=== PATIENT | male | born 1965 | race Caucasian/White ===

== ENCOUNTER 2022-10-26 10:33 | Day surgery (SDC) | payer OTHER ==
[~2022-10-26] VITALS: Ht 172.7 cm; Wt 86.1 kg
[2022-10-26] MEDS ORDERED: ATOR10 (10:46)
[2022-10-26] MEDS ORDERED: Lisinopril2.5 MG (10:47)
[2022-10-26 13:26] VITALS: BP 117/82
== END 2022-10-26 13:19 | disposition home or self-care (01) ==
LOC: ORSCSDS 10:33
PROVIDERS: Internal Medicine Gastroenterology
PROC: 0DBM8ZX Excision of Descending Colon, Via Natural or Artificial Opening Endoscopic, Diagnostic (ICD-10-PCS; principal; 2022-10-26 12:00)
PROC: 0DBN8ZX Excision of Sigmoid Colon, Via Natural or Artificial Opening Endoscopic, Diagnostic (ICD-10-PCS; principal; 2022-10-26 12:00)
PROC: 0DBC8ZX Excision of Ileocecal Valve, Via Natural or Artificial Opening Endoscopic, Diagnostic (ICD-10-PCS; principal; 2022-10-26 12:00)
PROC: 0DBL8ZX Excision of Transverse Colon, Via Natural or Artificial Opening Endoscopic, Diagnostic (ICD-10-PCS; principal; 2022-10-26 12:00)
PROC: 0DBP8ZX Excision of Rectum, Via Natural or Artificial Opening Endoscopic, Diagnostic (ICD-10-PCS; principal; 2022-10-26 12:00)
PROC: 3E0H8KZ Introduction of Other Diagnostic Substance into Lower GI, Via Natural or Artificial Opening Endoscopic (ICD-10-PCS; principal; 2022-10-26 12:00)
PROC: 0DBE8ZX Excision of Large Intestine, Via Natural or Artificial Opening Endoscopic, Diagnostic (ICD-10-PCS; principal; 2022-10-26 12:00)
DX: K51.918 Ulcerative colitis, unspecified with other complication (principal); Z86.010 Personal history of colon polyps; D12.3 Benign neoplasm of transverse colon; D12.5 Benign neoplasm of sigmoid colon; D37.4 Neoplasm of uncertain behavior of colon; K64.4 Residual hemorrhoidal skin tags; K57.30 Diverticulosis of large intestine without perforation or abscess without bleeding; I10 Essential (primary) hypertension; E78.00 Pure hypercholesterolemia, unspecified; Z87.891 Personal history of nicotine dependence; Z79.899 Other long term (current) drug therapy
CPT/HCPCS: 88305; J2250; J2405; J2704; J7120

== ENCOUNTER 2023-07-25 08:55 | Day surgery (SDC) | payer OTHER ==
[~2023-07-25] VITALS: Ht 172.7 cm; Wt 91.7 kg
[~2023-07-25 08:55] MED LIST: ATOR10; ATOR40TA PO; Lactated Ringer's 0 ML IV ONE; Lisinopril2.5 MG; Prinivil10 MG PO; propofoL 0 ML IV ONE
[2023-07-25 09:26] VITALS: BP 133/91
[2023-07-25] MEDS ORDERED: Lactated Ringer's 1,000 ML IV ONE (09:51)
--- NOTE | 2023-07-25 10:06 | NUR ---
07/25/23 1006 SUMMER BENNETT IN TO SEE PATIENT IN PRE OP - THEN PT CALLED FOR NURSE. PER PATIENT, SAID THERE IS "NO NEED FOR (ME) TO BE HERE" HE HAS ACTIVE COLITIS, AND HAS NOT UNDERGONE TREATMENT. PT'S CASE CANCELLED FOR TODAY AND WILL BE RESCHEDULED. OLGA MARINO IN TO REMOVE IV AND DC FLUIDS. PATIENT DRESSED AND ESCORTED TO LOBBY. PT'S RIDE CALLED AND WILL MEET THEM OUT FRONT. OFFERED DRINK AND SNACKS, PT DECLINED.
== END 2023-07-25 09:50 | disposition home or self-care (01) ==
LOC: ORSCSDS 08:55
DX: Z86.010 Personal history of colon polyps (principal); Z53.9 Procedure and treatment not carried out, unspecified reason
CPT/HCPCS: J2704; J7120

== ENCOUNTER → 2024-06-03 | Outpatient (CLI) | payer OTHER ==
[~2024-06-03] MED LIST changes: -Lactated Ringer's 0 ML IV ONE; -propofoL 0 ML IV ONE
== END | disposition home or self-care (01) ==
LOC: LAB SHORT 12:18 → LAB 12:18
DX: M54.16 Radiculopathy, lumbar region (principal)
CPT/HCPCS: 87086

== ENCOUNTER → 2024-06-10 | Outpatient (CLI) | payer OTHER ==
[2024-06-10 10:07] LABS: Source, Urine Clean Catch
[2024-06-10 13:46] LABS: White Blood Cells, Urine TNTC /hpf (0-5)
[2024-06-10 13:47] LABS: Amorphous Mod (0-Heavy); Bacteria Many /hpf; Calcium Oxalate Crystals Rare /hpf; Squamous Epithelial Cells Rare /hpf (Few)
== END ==
LOC: LAB 09:54 → LAB SHORT 09:54
PROVIDERS: Physician Assistant
DX: R31.29 Other microscopic hematuria (principal)
CPT/HCPCS: 81015

== ENCOUNTER 2024-08-18 11:05 | Inpatient (IN) | payer OTHER ==
[~2024-08-18] VITALS: Ht 172.7 cm; Wt 72.2 kg
[2024-08-18 12:00] LABS: BASOPHILS ABSOLUTE AUTO 0.08 K/mm3 (0.00-0.23); BASOPHILS PERCENT AUTO 0 % (0-2); EOSINOPHILS ABSOLUTE AUTO 0.02 K/mm3 (0.00-0.68); EOSINOPHILS PERCENT AUTO 0 % (0-6); Hematocrit 21.5 % (37.0-53.0); Hemoglobin 6.9 g/dL (13.5-17.5); IMMATURE GRAN ABSOLUTE AUTO 0.12 K/mm3 (0.00-0.10); IMMATURE GRAN PERCENT AUTO 1 % (0-1); LYMPHOCYTES PERCENT AUTO 5 % (21-46); MONOCYTES ABSOLUTE AUTO 1.83 K/mm3 (0.16-1.47); MONOCYTES PERCENT AUTO 8 % (4-13); Mean Corpuscular HGB 23.5 pg (26.0-34.0); Mean Corpuscular HGB Conc 32.1 g/dL (31.5-36.5); Mean Corpuscular Volume 73 fL (80-100); Mean Platelet Volume 8.6 fL (9.1-12.4); NEUTROPHILS ABSOLUTE AUTO 21.07 K/mm3 (1.96-9.15); NEUTROPHILS PERCENT AUTO 87 % (41-73); Platelet Count 829 K/mm3 (150-400); RDW Coefficient Variation 17.4 % (11.7-14.2); RDW Standard Deviation 46.6 fL (35.1-46.3); Red Blood Cell Count 2.94 M/mm3 (4.30-5.90); White Blood Cell Count 24.22 K/mm3 (4.00-11.30)
[2024-08-18 12:22] LABS: Albumin, Blood 2.3 g/dL (3.4-5.0); Albumin/Globulin Ratio 0.5 (0.8-1.8); Bilirubin, Total 0.4 mg/dL (0.1-1.0); Bun/Creatinine Ratio 11.8 (12.0-20.0); Calcium, Blood 8.8 mg/dL (8.5-10.1); Creatinine, Blood 0.94 mg/dL (0.60-1.20); Globulin, Blood 4.9 g/dL (2.2-4.0); Phosphorus, Blood 4.3 mg/dL (2.5-4.9); Potassium, Blood 3.8 mmol/L (3.5-5.5); Total Protein, Blood 7.2 g/dL (6.4-8.2)
[2024-08-18] MEDS ORDERED: NS 1,000 ML IV SCH ×2 (13:45→18:30)
[2024-08-18] MEDS ORDERED: Vancomycin HCL 1,500 MG in NS 250 ML IV ONE (13:45)
[2024-08-18] MEDS ORDERED: Piperacillin/Tazobactam Sod 4.5 GM in NS 100 ML IV ONE (13:45)
[2024-08-18] MEDS ORDERED: Morphine Sulfate 4 MG/1 ML Injection IV ONE (14:25)
[2024-08-18 14:42] LABS: Source, Urine Clean Catch
[2024-08-18 14:45] LABS: Appearance, Urine Turbid (Clear); Bilirubin, Urine Neg (Neg); Blood, Urine 5+ (Neg); Color, Urine Brown (P-Yellow); Glucose Qualitative, Urine Neg (Neg); Ketones, Urine Neg (Neg); Leukocyte Esterase, Urine 3+ (Neg); Nitrite, Urine Neg (Neg); Protein, Urine 3+ (Neg); Urobilinogen, Urine NORM (Normal); pH, Urine 6.5 (5.0-8.0)
[2024-08-18 14:57] LABS: Bacteria Many /hpf; Red Blood Cells, Urine TNTC /hpf (0-2); White Blood Cells, Urine TNTC /hpf (0-5)
[2024-08-18 14:58] LABS: Hyaline Casts 0-2 /lpf (0-2); Squamous Epithelial Cells Few /hpf (Few); Transitional Epithelial Cells Rare /hpf (0-Rare)
[2024-08-18] MEDS ORDERED: HYDROmorphone HCl/Pf 1MG SYR IV ONE (15:55)
[2024-08-18] MEDS ORDERED: Ondansetron HCl 2 MG / ML 2ML Vial IV PRN (18:30)
[2024-08-18] MEDS ORDERED: FentaNYL Citrate 50 MCG/ML 2 ML Injection IV PRN (18:30)
[2024-08-18] MEDS ORDERED: FLU VACC TS2024-25(6MOS UP)/PF 45 MCG/0.5 ML SYRINGE IM ONE (18:30)
[2024-08-18 18:56] VITALS: BP 154/92
[2024-08-18] MEDS ORDERED: FentaNYL Citrate 50 MCG/ML 2 ML Injection IV ONE (19:00)
[2024-08-18 19:27] VITALS: BP 153/78
[2024-08-18] MEDS ORDERED: Morphine Sulfate 4 MG/1 ML Injection IV PRN (20:25)
[2024-08-18] MEDS ORDERED: OxyCODONE 5 mg/Acetamin 325 mg TABLET PO PRN (20:25)
[2024-08-18 20:50] LABS: Hematocrit 22.1 % (37.0-53.0); Hemoglobin 7.1 g/dL (13.5-17.5)
[2024-08-18] MEDS ORDERED: Lactobacil 2-S.Thermo-Bifido 1 1 Cap PO SCH (21:00)
[2024-08-19] VITALS (9 sets, daily range): BP systolic 112–155; BP diastolic 69–88
[2024-08-19] MEDS ORDERED: Piperacillin/Tazobactam Sod 3.375 GM in NS 100 ML IV SCH
[2024-08-19] MEDS ORDERED: Vancomycin HCL 1,250 MG in NS 250 ML IV SCH (03:00)
--- NOTE | 2024-08-19 04:36 | NUR ---
SHIFT SUMMARY. PATIENT IS A&OX4, ANSWERS QUESTIONS APPROPRIATELY AND IS ABLE TO MAKE HIS NEEDS KNOWN. PATIENT IS UP INDEPENDENTLY IN ROOM. PATIENT REPORTS HEMATURIA THIS MORNING THAT APPEARS TO BE PROMINENT. PATIENTS PAIN MEDICATIONS CHANGED THIS SHIFT FROM FENTANYL TO DILAUDID IV AND PATIENT HAS ORDER FOR PO MEDICATIONS-SEE ORDERS. PATIENTS HAS CONSISTANT PAIN TO THE LOWER BACK THAT RANGES FROM 6-10; PATIENT REPORTS BETTER PAIN CONTROL WITH DILAUDID. PATIENT HAS NOT HAD A BM IN A COUPLE DAYS BUT ALSO REPORTS THAT HE HAS NOT BEEN EATING AND DOES NOT FEEL IF HE NEEDS TO HAVE A BM. PATIENT IS SATTING >93% ON RA AND DENIES SOB. PATIENT IS STEADY ON FEET AND RECEIVING 150ML/HR OF NS PER ORDERS. OLGA PRAKASH GAVE UPDATE TO [facility] THIS SHIFT; DURING THAT TIME THEY DID NOT HAVE A BEEN AVALIABLE. PATIENT IS AWAITING A COBRA TRANSFER TO [facility] FOR SURGICAL INTERVENTIONS. BED IS LOCKED IN THE LOWEST POSITION WITH CALL LIGHT IN REACH. CARE IS ONGOING.
[2024-08-19 04:57] LABS: BASOPHILS ABSOLUTE AUTO 0.08 K/mm3 (0.00-0.23); BASOPHILS PERCENT AUTO 1 % (0-2); EOSINOPHILS ABSOLUTE AUTO 0.06 K/mm3 (0.00-0.68); EOSINOPHILS PERCENT AUTO 0 % (0-6); Hematocrit 19.8 % (37.0-53.0); Hemoglobin 6.2 g/dL (13.5-17.5); IMMATURE GRAN ABSOLUTE AUTO 0.09 K/mm3 (0.00-0.10); IMMATURE GRAN PERCENT AUTO 1 % (0-1); LYMPHOCYTES ABSOLUTE AUTO 1.16 K/mm3 (0.84-5.20); LYMPHOCYTES PERCENT AUTO 8 % (21-46); MONOCYTES ABSOLUTE AUTO 1.65 K/mm3 (0.16-1.47); MONOCYTES PERCENT AUTO 11 % (4-13); Mean Corpuscular HGB 23.5 pg (26.0-34.0); Mean Corpuscular HGB Conc 31.3 g/dL (31.5-36.5); Mean Corpuscular Volume 75 fL (80-100); Mean Platelet Volume 8.6 fL (9.1-12.4); NEUTROPHILS ABSOLUTE AUTO 11.51 K/mm3 (1.96-9.15); NEUTROPHILS PERCENT AUTO 79 % (41-73); Platelet Count 606 K/mm3 (150-400); RDW Coefficient Variation 18.3 % (11.7-14.2); RDW Standard Deviation 49.8 fL (35.1-46.3); Red Blood Cell Count 2.64 M/mm3 (4.30-5.90); White Blood Cell Count 14.55 K/mm3 (4.00-11.30)
[2024-08-19 05:13] LABS: Albumin, Blood 1.9 g/dL (3.4-5.0); Albumin/Globulin Ratio 0.5 (0.8-1.8); Bilirubin, Total 0.8 mg/dL (0.1-1.0); Bun/Creatinine Ratio 11.7 (12.0-20.0); Calcium, Blood 8.4 mg/dL (8.5-10.1); Creatinine, Blood 0.86 mg/dL (0.60-1.20); Magnesium, Blood 1.8 mg/dL (1.6-2.4); Potassium, Blood 3.7 mmol/L (3.5-5.5); Total Protein, Blood 5.9 g/dL (6.4-8.2)
[2024-08-19 05:17] LABS: International Normalized Ratio 1.13
[2024-08-19] MEDS ORDERED: NS 500 ML IV SCH (05:35)
[2024-08-19] MEDS ORDERED: Docusate Sodium 100 MG Cap PO SCH (09:00)
[2024-08-19] MEDS ORDERED: Atorvastatin 40 MG Tab PO SCH (09:00)
[2024-08-19 09:36] LABS: Hematocrit 25.6 % (37.0-53.0); Hemoglobin 8.4 g/dL (13.5-17.5)
[2024-08-19 15:36] LABS: Hematocrit 27.7 % (37.0-53.0); Hemoglobin 8.9 g/dL (13.5-17.5)
--- NOTE | 2024-08-19 18:39 | NUR ---
SHIFT NOTE: PT A/OX4 ABLE TO MAKE HIS NEEDS KNONW. HE IS IND IN ROOM WITH ALL ADLS. HE HAS HAD MULTIPLE EPIDSODES OF STOOL IN HIS URINE T/O DAY STATING HE IS PASSING MORE BLOOD. [facility] TRENDING UP. PT CONTINUES TO RECEIVE IV FLUIDS AND ANTIBIOTICS. HE CONTINUES TO REPORT PAIN, HE HAS BEEN MEDICATED PER MAR. HE HAS DECREASED APPITITE BUT HAS DRANK MULTIPLE ENSURE T/O DAY. CARE CONTINUES WE WAIT CO[facility]RA TO [facility].
[2024-08-19] MEDS ORDERED: OxyCODONE 5 mg/Acetamin 325 mg TABLET PO PRN (20:05)
--- NOTE | 2024-08-19 22:30 | NUR ---
ATTEMPTED TO REACH DR. BOSE VIA PHONE FOR INCREASED WOB, ACTIVITY INTOLERANCE AND REQURIING 4L 02. CURRENTLY HOOKED UP TO PD BY INFORMATION SERVICES MANAGER AT START OF SHIFT. NO ANSWER VIA PHONE. SPOKE WITH RESIDENT DR. COELHO REGARDING PT AND WOB, INCREASED O2 DEMAND. PER PROVIDER WANTING TO SEE WHAT PD SHOWS VOLUME STATUS BEFORE MAKING DECISION REGARDING ADDITIONAL DIUERETIC. PT ON CONTINOUS O2, WILL CONTINUE TO MONITOR.
[2024-08-20 00:41] VITALS: BP 140/94
[2024-08-20 02:37] LABS: BASOPHILS ABSOLUTE AUTO 0.07 K/mm3 (0.00-0.23); BASOPHILS PERCENT AUTO 1 % (0-2); EOSINOPHILS PERCENT AUTO 2 % (0-6); Hematocrit 21.8 % (37.0-53.0); Hemoglobin 7.2 g/dL (13.5-17.5); IMMATURE GRAN ABSOLUTE AUTO 0.07 K/mm3 (0.00-0.10); IMMATURE GRAN PERCENT AUTO 1 % (0-1); LYMPHOCYTES ABSOLUTE AUTO 1.29 K/mm3 (0.84-5.20); LYMPHOCYTES PERCENT AUTO 10 % (21-46); MONOCYTES ABSOLUTE AUTO 1.98 K/mm3 (0.16-1.47); MONOCYTES PERCENT AUTO 16 % (4-13); Mean Corpuscular HGB 24.8 pg (26.0-34.0); Mean Corpuscular Volume 75 fL (80-100); Mean Platelet Volume 8.5 fL (9.1-12.4); NEUTROPHILS ABSOLUTE AUTO 8.83 K/mm3 (1.96-9.15); NEUTROPHILS PERCENT AUTO 70 % (41-73); Platelet Count 563 K/mm3 (150-400); RDW Coefficient Variation 17.9 % (11.7-14.2); RDW Standard Deviation 48.9 fL (35.1-46.3); White Blood Cell Count 12.54 K/mm3 (4.00-11.30)
[2024-08-20 03:08] LABS: Albumin, Blood 1.9 g/dL (3.4-5.0); Anion Gap 11 mmol/L (3-11); Blood Urea Nitrogen 12 mg/dL (8-24); Bun/Creatinine Ratio 14.8 (12.0-20.0); CO2, Blood 23 mmol/L (21-32); Calcium, Blood 8.3 mg/dL (8.5-10.1); Chloride, Blood 105 mmol/L (98-108); Creatinine, Blood 0.81 mg/dL (0.60-1.20); Glomerular Filtration Rate 101 (60-); Glucose, Blood 114 mg/dL (70-99); Phosphorus, Blood 3.7 mg/dL (2.5-4.9); Potassium, Blood 3.9 mmol/L (3.5-5.5); Sodium, Blood 135 mmol/L (136-145)
[2024-08-20 03:12] LABS: Vancomycin, Trough 20.6 ug/mL (5.0-10.0)
[2024-08-20] MEDS ORDERED: Vancomycin HCL 1,000 MG in NS 250 ML IV SCH (04:00)
[2024-08-20 04:50] VITALS: BP 134/88
[2024-08-20 07:29] VITALS: BP 146/81
[2024-08-20] MEDS ORDERED: Morphine Sulfate 4 MG/1 ML Injection IV ONE (07:50)
[2024-08-20 11:20] VITALS: BP 133/82
[2024-08-20 11:24] VITALS: BP 133/82
[2024-08-20] MEDS ORDERED: Morphine Sulfate 4 MG/1 ML Injection IV PRN (12:35)
--- NOTE | 2024-08-20 15:22 | NUR ---
COBRA [place] PT A&Ox4, CALLS AND COMMUNICATES NEEDS APPROPRIATELY. IND IN ROOM. BP STABLE, SINUS 80's, DENIES CP/PRESSURE. SpO2> 92% RA, DENIES SOB. PT WITH INCREASING SEVERITY IN ABD PAIN, MANAGING PER EMAR. VOIDING IND WITH URINAL, URINE IS YELLOW/BROWN. REPORT GIVEN TO [facility] RN. PT TRANSFERED TO [facility] WITH [facility]. FAMILY TOOK ALL BELONGINGS AND ON THEIR WAY TO [facility]. PT LEFT ROOM AT APPROXIMATELY 1340.
== END 2024-08-20 13:34 | disposition short-term general hospital (02) | DRG 698 ==
LOC: ER 11:05 → PCU 18:00
PROVIDERS: Family Medicine; Nurse Practitioner Acute Care; Student in an Organized Health Care Education/Training Program; ADMIT Internal Medicine
DX: N32.1 Vesicointestinal fistula (principal); K65.1 Peritoneal abscess; E87.1 Hypo-osmolality and hyponatremia; K51.90 Ulcerative colitis, unspecified, without complications; N39.0 Urinary tract infection, site not specified; N13.30 Unspecified hydronephrosis; I10 Essential (primary) hypertension; E78.5 Hyperlipidemia, unspecified; D64.9 Anemia, unspecified; R31.0 Gross hematuria; Z79.899 Other long term (current) drug therapy; Z87.19 Personal history of other diseases of the digestive system; Z79.811 Long term (current) use of aromatase inhibitors
CPT/HCPCS: 36415; 36430; 71045; 74177; 80053; 80069; 80202; 81001; 83605; 83735; 84100; 85014; 85018; 85025; 85610; 86850; 86900; 86901; 86923; 87086; 93005; 93010; 96374; 96375; 99285-25; A9270; J1171; J2270; J2405; J2543; J3010; J3370; J7030; J7050; P9016; Q9967

== ENCOUNTER 2024-10-05 19:19 | Emergency (ER) | payer OTHER ==
[~2024-10-05] VITALS: Ht 172.7 cm; Wt 68.0 kg
[2024-10-05 19:32] VITALS: BP 123/86
[2024-10-05 20:39] LABS: Source, Urine Foley catheter
[2024-10-05 20:42] LABS: Appearance, Urine Cloudy (Clear); Bilirubin, Urine Neg (Neg); Blood, Urine 5+ (Neg); Color, Urine Yellow (P-Yellow); Glucose Qualitative, Urine Neg (Neg); Ketones, Urine Neg (Neg); Leukocyte Esterase, Urine 3+ (Neg); Nitrite, Urine Neg (Neg); Protein, Urine 4+ (Neg); Urobilinogen, Urine NORM (Normal)
[2024-10-05 20:49] LABS: Amorphous Mod (0-Heavy); Bacteria Mod /hpf; Mucus Light (0-Heavy); Red Blood Cells, Urine TNTC /hpf (0-2); Spermatozoa Few /hpf; Squamous Epithelial Cells Few /hpf (Few); White Blood Cells, Urine 25-50 /hpf (0-5)
[2024-10-05] MEDS ORDERED: BACTRIM DS TAB1 EAC1 PO (21:13)
[2024-10-05] MEDS ORDERED: Trimethoprim/Sulfamethoxazole DS Tab PO ONE (21:15)
== END 2024-10-05 21:15 | disposition home or self-care (01) ==
LOC: ER 19:19
PROVIDERS: Student in an Organized Health Care Education/Training Program
DX: T83.091A Other mechanical complication of indwelling urethral catheter, initial encounter (principal); N39.0 Urinary tract infection, site not specified; Z79.899 Other long term (current) drug therapy
CPT/HCPCS: 51702; 51798; 81001; 87077; 87086; 87147; 87186; 99283-25; A9270

== ENCOUNTER → 2024-10-07 | Outpatient (CLI) | payer OTHER ==
[~2024-10-07] MED LIST changes: +BACTRIM DS TAB1 EAC1 PO
[2024-10-07 19:29] LABS: BASOPHILS ABSOLUTE AUTO 0.06 K/mm3 (0.00-0.23); BASOPHILS PERCENT AUTO 1 % (0-2); EOSINOPHILS ABSOLUTE AUTO 0.15 K/mm3 (0.00-0.68); EOSINOPHILS PERCENT AUTO 3 % (0-6); Hematocrit 30.5 % (37.0-53.0); Hemoglobin 9.8 g/dL (13.5-17.5); IMMATURE GRAN ABSOLUTE AUTO 0.01 K/mm3 (0.00-0.10); IMMATURE GRAN PERCENT AUTO 0 % (0-1); LYMPHOCYTES ABSOLUTE AUTO 1.59 K/mm3 (0.84-5.20); LYMPHOCYTES PERCENT AUTO 29 % (21-46); MONOCYTES PERCENT AUTO 11 % (4-13); Mean Corpuscular HGB 26.8 pg (26.0-34.0); Mean Corpuscular HGB Conc 32.1 g/dL (31.5-36.5); Mean Corpuscular Volume 83 fL (80-100); Mean Platelet Volume 10.1 fL (9.1-12.4); NEUTROPHILS ABSOLUTE AUTO 3.03 K/mm3 (1.96-9.15); NEUTROPHILS PERCENT AUTO 56 % (41-73); Platelet Count 517 K/mm3 (150-400); RDW Coefficient Variation 20.6 % (11.7-14.2); RDW Standard Deviation 62.9 fL (35.1-46.3); Red Blood Cell Count 3.66 M/mm3 (4.30-5.90); White Blood Cell Count 5.44 K/mm3 (4.00-11.30)
[2024-10-07 19:38] LABS: Alanine Aminotransfer (ALT/SGP 26 U/L (12-78); Albumin/Globulin Ratio 0.7 (0.8-1.8); Alk Phos 196 U/L (50-136); Anion Gap 10 mmol/L (3-11); Aspartate Aminotrans (AST/SGOT 25 U/L (12-37); Bilirubin, Total 0.4 mg/dL (0.1-1.0); Blood Urea Nitrogen 25 mg/dL (8-24); Bun/Creatinine Ratio 42.7 (12.0-20.0); CO2, Blood 26 mmol/L (21-32); Calcium, Blood 8.9 mg/dL (8.5-10.1); Chloride, Blood 100 mmol/L (98-108); Creatinine, Blood 0.59 mg/dL (0.60-1.20); Globulin, Blood 4.3 g/dL (2.2-4.0); Glomerular Filtration Rate 111 (60-); Glucose, Blood 84 mg/dL (70-99); Phosphorus, Blood 4.4 mg/dL (2.5-4.9); Potassium, Blood 4.3 mmol/L (3.5-5.5); Sodium, Blood 132 mmol/L (136-145); Total Protein, Blood 7.3 g/dL (6.4-8.2); Triglycerides 75 mg/dL (30-160)
== END ==
LOC: LAB 19:04 → LAB SHORT 19:04
PROVIDERS: Surgery
DX: K63.2 Fistula of intestine (principal); K52.9 Noninfective gastroenteritis and colitis, unspecified
CPT/HCPCS: 80053; 83735; 84100; 84478; 85025

== ENCOUNTER → 2024-10-14 | Outpatient (CLI) | payer OTHER ==
[2024-10-14 19:17] LABS: BASOPHILS ABSOLUTE AUTO 0.08 K/mm3 (0.00-0.23); BASOPHILS PERCENT AUTO 1 % (0-2); EOSINOPHILS ABSOLUTE AUTO 0.47 K/mm3 (0.00-0.68); EOSINOPHILS PERCENT AUTO 7 % (0-6); Hematocrit 33.4 % (37.0-53.0); Hemoglobin 10.8 g/dL (13.5-17.5); IMMATURE GRAN ABSOLUTE AUTO 0.01 K/mm3 (0.00-0.10); IMMATURE GRAN PERCENT AUTO 0 % (0-1); LYMPHOCYTES ABSOLUTE AUTO 1.73 K/mm3 (0.84-5.20); LYMPHOCYTES PERCENT AUTO 27 % (21-46); MONOCYTES ABSOLUTE AUTO 0.53 K/mm3 (0.16-1.47); MONOCYTES PERCENT AUTO 8 % (4-13); Mean Corpuscular HGB 26.9 pg (26.0-34.0); Mean Corpuscular HGB Conc 32.3 g/dL (31.5-36.5); Mean Corpuscular Volume 83 fL (80-100); Mean Platelet Volume 10.1 fL (9.1-12.4); NEUTROPHILS PERCENT AUTO 56 % (41-73); Platelet Count 383 K/mm3 (150-400); RDW Coefficient Variation 19.8 % (11.7-14.2); RDW Standard Deviation 59.9 fL (35.1-46.3); Red Blood Cell Count 4.01 M/mm3 (4.30-5.90); White Blood Cell Count 6.42 K/mm3 (4.00-11.30)
[2024-10-14 20:15] LABS: Alanine Aminotransfer (ALT/SGP 42 U/L (12-78); Albumin, Blood 3.2 g/dL (3.4-5.0); Albumin/Globulin Ratio 0.8 (0.8-1.8); Alk Phos 140 U/L (50-136); Anion Gap 8 mmol/L (3-11); Aspartate Aminotrans (AST/SGOT 25 U/L (12-37); Bilirubin, Direct <0.1 mg/dL (0.0-0.3); Bilirubin, Total 0.3 mg/dL (0.1-1.0); Blood Urea Nitrogen 19 mg/dL (8-24); CO2, Blood 26 mmol/L (21-32); Calcium, Blood 9.4 mg/dL (8.5-10.1); Chloride, Blood 105 mmol/L (98-108); Globulin, Blood 3.9 g/dL (2.2-4.0); Glucose, Blood 93 mg/dL (70-99); Magnesium, Blood 1.9 mg/dL (1.6-2.4); Phosphorus, Blood 4.3 mg/dL (2.5-4.9); Potassium, Blood 4.2 mmol/L (3.5-5.5); Sodium, Blood 135 mmol/L (136-145); Total Protein, Blood 7.1 g/dL (6.4-8.2); Triglycerides 70 mg/dL (30-160)
[2024-10-14 20:23] LABS: Bun/Creatinine Ratio 42.1 (12.0-20.0); Creatinine, Blood 0.45 mg/dL (0.60-1.20); Glomerular Filtration Rate 121 (60-); Prealbumin, Blood 33.9 mg/dL (20.0-40.0)
== END ==
LOC: LAB SHORT 18:47 → LAB 18:47
PROVIDERS: Surgery
DX: K63.2 Fistula of intestine (principal); K52.9 Noninfective gastroenteritis and colitis, unspecified
CPT/HCPCS: 80053; 82248; 83735; 84100; 84134; 84478; 85025

== ENCOUNTER → 2024-10-21 | Outpatient (CLI) | payer OTHER | LOC: LAB 18:46 → LAB SHORT 18:46 | DX: K63.2 Fistula of intestine (principal); K52.9 Noninfective gastroenteritis and colitis, unspecified ==

== ENCOUNTER → 2024-10-23 | Outpatient (CLI) | payer OTHER | LOC: LAB SHORT 14:57 → LAB 14:57 → LAB FUT 10-18 12:40 | DX: R19.7 Diarrhea, unspecified (principal) ==

== ENCOUNTER 2024-10-25 11:04 | Emergency (ER) | payer OTHER ==
[~2024-10-25] VITALS: Ht 175.3 cm; Wt 72.6 kg
[2024-10-25] MEDS ORDERED: HYDROmorphone HCl/Pf 1MG SYR IV ONE ×2 (11:30→14:20)
[2024-10-25 12:00] LABS: BASOPHILS ABSOLUTE AUTO 0.06 K/mm3 (0.00-0.23); BASOPHILS PERCENT AUTO 1 % (0-2); EOSINOPHILS ABSOLUTE AUTO 0.17 K/mm3 (0.00-0.68); EOSINOPHILS PERCENT AUTO 2 % (0-6); Hematocrit 38.2 % (37.0-53.0); Hemoglobin 12.4 g/dL (13.5-17.5); IMMATURE GRAN ABSOLUTE AUTO 0.03 K/mm3 (0.00-0.10); IMMATURE GRAN PERCENT AUTO 0 % (0-1); LYMPHOCYTES PERCENT AUTO 17 % (21-46); MONOCYTES ABSOLUTE AUTO 0.86 K/mm3 (0.16-1.47); MONOCYTES PERCENT AUTO 8 % (4-13); Mean Corpuscular HGB 27.4 pg (26.0-34.0); Mean Corpuscular HGB Conc 32.5 g/dL (31.5-36.5); Mean Corpuscular Volume 84 fL (80-100); Mean Platelet Volume 9.1 fL (9.1-12.4); NEUTROPHILS ABSOLUTE AUTO 8.02 K/mm3 (1.96-9.15); NEUTROPHILS PERCENT AUTO 73 % (41-73); Platelet Count 266 K/mm3 (150-400); RDW Coefficient Variation 18.7 % (11.7-14.2); Red Blood Cell Count 4.53 M/mm3 (4.30-5.90); White Blood Cell Count 11.04 K/mm3 (4.00-11.30)
[2024-10-25 12:27] LABS: Albumin, Blood 3.4 g/dL (3.4-5.0); Albumin/Globulin Ratio 0.9 (0.8-1.8); Bilirubin, Total 0.4 mg/dL (0.1-1.0); Bun/Creatinine Ratio 47.4 (12.0-20.0); Calcium, Blood 9.4 mg/dL (8.5-10.1); Creatinine, Blood 0.49 mg/dL (0.60-1.20); Globulin, Blood 3.9 g/dL (2.2-4.0); Potassium, Blood 4.1 mmol/L (3.5-5.5); Total Protein, Blood 7.3 g/dL (6.4-8.2)
[2024-10-25] MEDS ORDERED: NS 500 ML IV SCH (14:20)
[2024-10-25] MEDS ORDERED: [UNRECOGNIZED DRUG - OTHER] PO (15:38)
[2024-10-25] MEDS ORDERED: HYDMOR4 PO (15:38)
[2024-10-25] MEDS ORDERED: [UNRECOGNIZED DRUG - OTHER] TP (15:38)
[2024-10-25 15:39] LABS: Source, Urine Clean Catch
[2024-10-25 15:44] LABS: Appearance, Urine Hazy (Clear); Bilirubin, Urine Neg (Neg); Blood, Urine 1+ (Neg); Glucose Qualitative, Urine Neg (Neg); Ketones, Urine Neg (Neg); Leukocyte Esterase, Urine 3+ (Neg); Nitrite, Urine Neg (Neg); Protein, Urine 2+ (Neg); Specific Gravity, Urine 1.005 (1.003-1.022); Urobilinogen, Urine NORM (Normal)
[2024-10-25 16:00] VITALS: BP 115/76
[2024-10-25 16:06] LABS: Color, Urine Pale Yellow (P-Yellow)
[2024-10-25 16:08] LABS: Bacteria Many /hpf; Mucus Light (0-Heavy); Squamous Epithelial Cells Rare /hpf (Few); White Blood Cells, Urine 25-50 /hpf (0-5)
== END 2024-10-25 16:12 | disposition home or self-care (01) ==
LOC: ER 11:04
PROVIDERS: Emergency Medicine
DX: R10.9 Unspecified abdominal pain (principal); I10 Essential (primary) hypertension; E78.5 Hyperlipidemia, unspecified
CPT/HCPCS: 74177; 80053; 81001; 83690; 85025; 87086; 87147; 96374-59; 96376; 99284-25; J1171; J7030; Q9967

== ENCOUNTER 2025-04-04 12:01 | Day surgery (SDC) | payer OTHER ==
[~2025-04-04] VITALS: Ht 172.7 cm; Wt 145.8 kg
[~2025-04-04 12:01] MED LIST changes: +Glycopyrrolate 0.2 MG/ML 1MLVIAL ONE; +HYDMOR4 PO; +Ondansetron HCl 2 MG / ML 2ML Vial ONE; +[UNRECOGNIZED DRUG - OTHER] PO; +[UNRECOGNIZED DRUG - OTHER] TP; +ePHEDrine Sulfate 50 MG/ML 1ML Injection ONE
[2025-04-04] MEDS ORDERED: Lipitor10 MG (12:55)
--- NOTE | 2025-04-04 15:24 | NUR ---
04/04/25 1524 Mariah Santana PROCEDURE STARTED WITH PATIENT ON HIS BACK SO DR COULD SCOPE COLOSTOMY, PATIENT THEN TURNED ONTO LEFT SIDE FOR RECTAL SCOPE.
[2025-04-04 16:07] VITALS: BP 125/84
== END 2025-04-04 15:55 | disposition home or self-care (01) ==
LOC: ORSCSDS 12:01
PROVIDERS: Internal Medicine Gastroenterology
PROC: 0DBP8ZX Excision of Rectum, Via Natural or Artificial Opening Endoscopic, Diagnostic (ICD-10-PCS; principal; 2025-04-04 13:30)
PROC: 0DBE8ZX Excision of Large Intestine, Via Natural or Artificial Opening Endoscopic, Diagnostic (ICD-10-PCS; principal; 2025-04-04 13:30)
DX: K50.10 Crohn's disease of large intestine without complications (principal); K62.89 Other specified diseases of anus and rectum; K52.9 Noninfective gastroenteritis and colitis, unspecified; Z90.49 Acquired absence of other specified parts of digestive tract; K57.30 Diverticulosis of large intestine without perforation or abscess without bleeding; Z86.0101 Personal history of adenomatous and serrated colon polyps; I10 Essential (primary) hypertension; Z79.899 Other long term (current) drug therapy
CPT/HCPCS: 88305; J2003; J2405; J2704; J7120

== ENCOUNTER → 2025-04-07 | Outpatient (CLI) | payer OTHER ==
[~2025-04-07] MED LIST changes: -Glycopyrrolate 0.2 MG/ML 1MLVIAL ONE; +Lipitor10 MG; -Ondansetron HCl 2 MG / ML 2ML Vial ONE; -ePHEDrine Sulfate 50 MG/ML 1ML Injection ONE
[2025-04-09 11:31] LABS: CALPROTECTIN,FECAL 68 ug/g (<=49)
== END ==
LOC: LAB SHORT 08:00 → LAB 08:00
PROVIDERS: Physician Assistant Medical
DX: K52.9 Noninfective gastroenteritis and colitis, unspecified (principal)
CPT/HCPCS: 83993